=== PATIENT | male | born 1945 | race Caucasian/White ===

== ENCOUNTER 2021-06-09 01:15 | Day surgery (SDC) | payer MEDICARE, SELFPAY ==
[2021-05-26 13:51] VITALS: BMI 25.1
[2021-06-09 08:08] VITALS: BP 132/55; PULSE 62; RESP 16; TEMP 36.2; O2SAT 100
[2021-06-09] MEDS: LACTATED RINGERS 1,000 ML 150 ML IV CONT (08:18)
--- NOTE | 2021-06-09 08:20 | WPDGICN ---
Assessment and Plan Assessment and plan (1) History of colon polyps: Code(s): Z86.010 - Personal history of colonic polyps Status: Acute Assessment and Plan: Patient has prior history of colon polyp in 2016. Plan is for surveillance colonoscopy at this time. Further recommendations will be given after endoscopy. GI Consult Note Consult date/time: 06/09/21 08:20 HPI: Vinod Lewis is a 76 year old male Presents for screening colonoscopy. Patient reports his current weight appetite bowel movements are normal. Patient denies abdominal pain. He has had no bleeding. Family history is noncontributory. Patient's most recent colonoscopy 2016 revealed benign adenoma. He presents today for follow-up screening colonoscopy. Review of Systems Review of Systems: All systems reviewed & are unremarkable except as noted in HPI and below PMFSH Past Medical History Medical History Chronic low back pain Dyslipidemia 04/13/2017 History of prostate cancer Tinnitus, right ear Surgical History Surgical History Hx of tonsillectomy 6th grade [place] teeth extracted Family History Family History Mother Diabetes mellitus, Onset Age: 59 Sibling Malignant neoplasm of prostate Social History Social History Smoking status: Never smoker Second hand tobacco smoke exposure: Yes Additional smoking assessment comments: does smoke around him Alcohol intake: never Substance use: never Substance use type: does not use Living arrangements: with family Gender identity (if verbalized by the patient): Male Spiritual care concerns: No Meds Home Medications and Allergies Home Medications Medication Instructions Recorded Confirmed Type atorvastatin 20 mg tablet 20 mg PO QHS #90 tablet 04/29/21 05/26/21 Rx Allergies Allergy/AdvReac Type Severity Reaction Status Date / Time No Known Allergies Allergy Mild Verified 06/09/21 08:06 Vital Signs Vital Signs - 24 hr 06/09/21 08:08 Temperature 97.1 F L Pulse Rate 62 Respiratory Rate 16 Blood Pressure 132/55 L Pulse Oximetry 100 Exam Narrative: Physical exam reveals patient to be alert. Vital signs stable. HEENT exam is unremarkable. Patient is anicteric. Lungs are clear to auscultation and percussion. Heart is without murmur or extra sounds. abdominal exam bowel sounds are present soft nontender with no hepatosplenomegaly. Digital external rectal exam is normal.
[2021-06-09 08:35] VITALS: BP 130/57; PULSE 58; RESP 16; O2SAT 100
--- NOTE | 2021-06-09 08:47 | WPDANESEPPF ---
Anes - Initial Pre Proc Eval Procedure: Operation Date: 06/09/21 09:30 Proposed Procedures p Screening Colonoscopy - Mateo Roberts MD Date/Time: 06/09/21 08:47 Surgeon: Mateo Roberts MD Pre Op Diagnosis: hx of colon polyps Patient Data Age: 76 Gender: M Height: 1.75 m Weight: 74.8 kg Last Vital Signs Temp 97.1 F L 06/09/21 08:08 Pulse 62 06/09/21 08:08 Resp 16 06/09/21 08:08 BP 132/55 L 06/09/21 08:08 Pulse Ox 100 06/09/21 08:08 Allergies Allergy/AdvReac Type Severity Reaction Status Date / Time No Known Allergies Allergy Mild Verified 06/09/21 08:06 Home Medications Medication Instructions Recorded Confirmed Type atorvastatin 20 mg tablet 20 mg PO QHS #90 tablet 04/29/21 05/26/21 Rx Patient hx anesthesia problems: none Family hx anesthesia problems: none Results Review: All pre-operative results and documents have been reviewed as part of the pre-operative evaluation. [facility] Past Medical History Medical History Chronic low back pain Dyslipidemia 04/13/2017 History of prostate cancer Tinnitus, right ear Surgical History Surgical History Hx of tonsillectomy 6th grade [place] teeth extracted Family History Family History Mother Diabetes mellitus, Onset Age: 59 Sibling Malignant neoplasm of prostate Social History Social History Smoking status: Never smoker Second hand tobacco smoke exposure: Yes Additional smoking assessment comments: does smoke around him Alcohol intake: never Substance use: never Substance use type: does not use Living arrangements: with family Gender identity (if verbalized by the patient): Male Spiritual care concerns: No Anes - Eval Final PreProcedure Day of Procedure 06/09/21 08:47 Patient weight: normal Heart: regular rate and rhythm Lungs: clear to auscultation Airway: Mallampati scale class II Neurological: alert and oriented Last oral intake: >/= 8 hours ASA classification: II Emergent: no Anesthetic plan: proceed Anesthesia type and monitoring: general GIVS and standard monitoring Results Review: All pre-operative results and documents have been reviewed as part of the pre-operative evaluation. Informed Consent: The patient's anesthetic plan and its attendant risks and benefits were discussed with the patient/family/POA. Questions were solicited and answers provided to the satisfaction of the patient/family/POA.
[2021-06-09 09:15] VITALS: BP 87/46; PULSE 56; RESP 15; O2SAT 99
[2021-06-09 09:25] VITALS: BP 102/53; PULSE 54; RESP 15; O2SAT 99
== END 2021-06-09 09:47 | disposition home or self-care (01) ==
PROVIDERS: PCP Family Medicine; Visit Provider Internal Medicine Gastroenterology
PROC: 0DJD8ZZ Inspection of Lower Intestinal Tract, Via Natural or Artificial Opening Endoscopic (ICD-10-PCS; CPT 45378; principal; 2021-06-09 09:30)
DX: Z12.11 Encounter for screening for malignant neoplasm of colon (principal); D12.3 Benign neoplasm of transverse colon; D12.5 Benign neoplasm of sigmoid colon; K64.8 Other hemorrhoids; E78.5 Hyperlipidemia, unspecified
CPT/HCPCS: 45385; 88305; J2704; J7120

== ENCOUNTER 2024-02-08 08:07 | Outpatient (CLI) | payer MEDICARE, OTHER, SELFPAY ==
--- NOTE | ~2024-02-08 | XR_ITS ---
EXAMINATION: XR UGIAC w barium swallow DATE: 02/08/2024 09:15 INDICATION: Several months of sensation of food getting stuck in esophagus TECHNIQUE: The patient drank thick barium, gas-producing crystals, and thin barium. A total of 1616 f luoroscopic images of the esophagus, stomach, and proximal small bowel were obtained. Fluoroscopy exp osure time was 2.1 minutes. Total DAP was 10.374 Gycm^2 COMPARISON: None. FINDINGS: The esophagus is normal without mass or stricture. Esophageal motility is normal. There is no hiatal hernia. There was no gastroesophageal reflux with provocative maneuvers. There is an 8 mm p olypoid filling defect at the posterior fundus of the stomach. The visualized proximal small bowel is normal. IMPRESSION: 1. 8 mm polypoid filling defect at the posterior fundus of the stomach and would recommend endoscopy for further evaluation. Otherwise unremarkable upper GI and barium swallow study. Reviewed, dictated and finalized at location A. IMPRESSION: 1. 8 mm polypoid filling defect at the posterior fundus of the stomach and woul d recommend endoscopy for further evaluation. Otherwise unremarkable upper GI a nd barium swallow study.
== END 2024-02-08 08:08 | disposition home or self-care (01) ==
PROVIDERS: PCP Family Medicine; Visit Provider Nurse Practitioner Family
DX: R09.A2 Foreign body sensation, throat (principal)
CPT/HCPCS: 74246

== ENCOUNTER 2024-04-11 01:24 | Day surgery (SDC) | payer MEDICARE, OTHER, SELFPAY ==
[2024-03-27 15:07] VITALS: BMI 24.4
[2024-04-11 12:33] VITALS: BP 166/65; PULSE 71; RESP 18; TEMP 36.4; O2SAT 99; BMI 24.6
--- NOTE | 2024-04-11 12:55 | WPDANESEPPF ---
Anes - Initial Pre Proc Eval Procedure: Operation Date: 04/11/24 14:00 Proposed Procedures p Esophagogastroduodenoscopy - Albino Freeman MD Date/Time: 04/11/24 12:55 Surgeon: Albino Freeman MD Pre Op Diagnosis: Foreign body sensation throat, abnormal findings Patient Data Age: 78 Gender: M Height: 1.75 m Weight: 75.8 kg Last Vital Signs Temp 36.4 C 04/11/24 12:33 Pulse 71 04/11/24 12:33 Resp 18 04/11/24 12:33 BP 166/65 H 04/11/24 12:33 Pulse Ox 99 04/11/24 12:33 O2 Del Method Room Air 04/11/24 12:33 Allergies Allergy/AdvReac Type Severity Reaction Status Date / Time No Known Allergies Allergy Mild Verified 04/11/24 12:44 Home Medications Medication Instructions Recorded Confirmed Type cyanocobalamin (vitamin B-12) 1,000 mcg sublingual DAILY #90 tabs 06/14/23 04/11/24 Rx 1,000 mcg sublingual tablet atorvastatin 20 mg tablet 20 mg PO QHS #90 tabs 11/30/23 04/11/24 Rx lisinopril 20 mg tablet 20 mg PO DAILY #90 tabs 11/30/23 04/11/24 Rx Vitamin D3 1 tab-cap PO DAILY 03/27/24 04/11/24 History Patient hx anesthesia problems: none Family hx anesthesia problems: none Results Review: All pre-operative results and documents have been reviewed as part of the pre-operative evaluation. [facility] Past Medical History Medical History Chronic low back pain CKD (chronic kidney disease) stage 3, GFR 30-59 ml/min Dyslipidemia 04/13/2017 Essential (primary) hypertension Globus sensation History of colon polyps History of prostate cancer Tinnitus, right ear Surgical History Surgical History Hx of tonsillectomy 6th grade [place] teeth extracted Family History Family History Mother Diabetes mellitus, Onset Age: 59 Sibling Malignant neoplasm of prostate Social History Social History Social History: Vinod is . 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 Smoking status: Never smoker Second hand tobacco smoke exposure: Yes Additional smoking assessment comments: does smoke around him Alcohol intake: current Substance use: never Substance use type: does not use Lack of Transportation: No Lack of Food: Never True Current Housing: I Have Housing Concerned About Future Housing: No Difficulty Paying Gas/Electric Bills: No Difficulty Paying for Meds: No Currently Unemployed: No Education: Master's Degree or Higher Difficulty w/ Childcare or Family Care: No Living arrangements: with family Additional living arrangements comments: Occupation/Education: retired Gender identity (if verbalized by the patient): Male Sexual Orientation (if Verbalized by the Patient): Straight or Heterosexual Spiritual care concerns: No Agree to blood products: Yes Anes - Eval Final PreProcedure Day of Procedure 04/11/24 12:55 Patient weight: normal Heart: regular rate and rhythm Lungs: clear to auscultation Airway: Mallampati scale class II Neurological: alert and oriented Last oral intake: >/= 8 hours ASA classification: III Emergent: no Anesthetic plan: proceed Anesthesia type and monitoring: general GIVS and standard monitoring Results Review: All pre-operative results and documents have been reviewed as part of the pre-operative evaluation. Informed Consent: The patient's anesthetic plan and its attendant risks and benefits were discussed with the patient/family/POA. Questions were solicited and answers provided to the satisfaction of the patient/family/POA.
[2024-04-11] MEDS: LACTATED RINGERS 1,000 ML 150 ML IV CONT (13:00)
--- NOTE | 2024-04-11 13:28 | PM.HPGS ---
History of Present Illness History of Present Illness Consent: Risks, benefits, and alternatives have been discussed and questions answered. Patient agrees to proceed with procedure. Chief complaint: Foreign body sensation throat, abnormal findings Narrative: Vinod Lewis is a 78 year old male here for egd because sensation of food getting stuck in esophagus, then had UGI- 8 mm polypoid filling defect at the posterior fundus of the stomach and would recommend endoscopy for further evaluation. Otherwise unremarkable upper GI and barium swallow study. Review of Systems Review of Systems: All systems reviewed & are unremarkable except as noted in HPI and below PMFSH Past Medical History Medical History (Updated 04/11/24 @ 13:28 by Albino Freeman MD) Abnormal UGI series Chronic low back pain CKD (chronic kidney disease) stage 3, GFR 30-59 ml/min Dyslipidemia 04/13/2017 Essential (primary) hypertension Globus sensation History of colon polyps History of prostate cancer Tinnitus, right ear Surgical History Surgical History Hx of tonsillectomy 6th grade [place] teeth extracted Family History Family History Mother Diabetes mellitus, Onset Age: 59 Sibling Malignant neoplasm of prostate Social History Social History Social History: Vinod is . 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 Smoking status: Never smoker Second hand tobacco smoke exposure: Yes Additional smoking assessment comments: does smoke around him Alcohol intake: current Substance use: never Substance use type: does not use Lack of Transportation: No Lack of Food: Never True Current Housing: I Have Housing Concerned About Future Housing: No Difficulty Paying Gas/Electric Bills: No Difficulty Paying for Meds: No Currently Unemployed: No Education: Master's Degree or Higher Difficulty w/ Childcare or Family Care: No Living arrangements: with family Additional living arrangements comments: Occupation/Education: retired Gender identity (if verbalized by the patient): Male Sexual Orientation (if Verbalized by the Patient): Straight or Heterosexual Spiritual care concerns: No Agree to blood products: Yes Meds Home Medications and Allergies Home Medications Medication Instructions Recorded Confirmed Type cyanocobalamin (vitamin B-12) 1,000 mcg sublingual DAILY #90 tabs 06/14/23 04/11/24 Rx 1,000 mcg sublingual tablet atorvastatin 20 mg tablet 20 mg PO QHS #90 tabs 11/30/23 04/11/24 Rx lisinopril 20 mg tablet 20 mg PO DAILY #90 tabs 11/30/23 04/11/24 Rx Vitamin D3 1 tab-cap PO DAILY 03/27/24 04/11/24 History Allergies Allergy/AdvReac Type Severity Reaction Status Date / Time No Known Allergies Allergy Mild Verified 04/11/24 12:44 Vital Signs Vital Signs - 24 hr 04/11/24 12:33 Temperature 97.6 F Pulse Rate 71 Respiratory Rate 18 Blood Pressure 166/65 H Pulse Oximetry 99 Oxygen Delivery Room Air Exam Const: General: comfortable and no acute distress HENMT: Face/Nose/Sinus: Normal nares present Eyes: General: appearance normal, both eyes and all related structures Neck: Neck: no JVD Resp: Auscultation: clear to auscultation bilaterally Cardio: Rate: regular rate Rhythm: regular rhythm GI: Inspection: non-distended GI Palp: Yes Soft to palpation Skin: General skin exam: normal color Neuro: General: gait normal Speech: normal speech Extrem: General: normal to inspection Psych: Mental Status: mental status grossly normal Assessment and Plan Assessment and plan (1) Abnormal UGI series: Code(s): R93.3 - Abnormal findings on diagnostic imaging of other parts of dig
[2024-04-11 13:39] VITALS: BP 158/70; PULSE 71; RESP 18; O2SAT 100
[2024-04-11 13:49] VITALS: BP 148/68; PULSE 65; RESP 18; O2SAT 99
[2024-04-11 13:55] VITALS: BP 157/75; PULSE 63; RESP 18; O2SAT 99
== END 2024-04-11 14:09 | disposition home or self-care (01) ==
PROVIDERS: PCP Family Medicine; Referring Provider Nurse Practitioner Family; Visit Provider Internal Medicine Gastroenterology
PROC: 0DJ08ZZ Inspection of Upper Intestinal Tract, Via Natural or Artificial Opening Endoscopic (ICD-10-PCS; CPT 43235; principal; 2024-04-11 14:00)
DX: K31.7 Polyp of stomach and duodenum (principal); I12.9 Hypertensive chronic kidney disease with stage 1 through stage 4 chronic kidney disease, or unspecified chronic kidney disease; N18.30 Chronic kidney disease, stage 3 unspecified; E78.5 Hyperlipidemia, unspecified; Z85.46 Personal history of malignant neoplasm of prostate
CPT/HCPCS: 43239; 88305; J2704; J7120

== ENCOUNTER 2024-06-22 01:20 | Day surgery (SDC) | payer MEDICARE, OTHER, SELFPAY ==
[2024-06-06 13:10] VITALS: BMI 24.4
[2024-06-22 11:40] VITALS: BP 141/59; PULSE 70; RESP 18; TEMP 36.8; O2SAT 100
[2024-06-22] MEDS: LACTATED RINGERS 1,000 ML 150 ML IV CONT (11:44)
--- NOTE | 2024-06-22 11:50 | P.PNAN_ITS ---
Anes - Initial Pre Proc Eval Procedure: Operation Date: 06/22/24 13:00 Proposed Procedures p Colonoscopy - Lior Hagan MD Date/Time: 06/22/24 11:50 Surgeon: Lior Hagan MD Pre Op Diagnosis: hx of colon polyps Patient Data Age: 79 Gender: M Height: 1.75 m Weight: 72.6 kg Last Vital Signs Temp 98.2 F 06/22/24 11:40 Pulse 70 06/22/24 11:40 Resp 18 06/22/24 11:40 BP 141/59 H 06/22/24 11:40 Pulse Ox 100 06/22/24 11:40 O2 Del Method Room Air 06/22/24 11:40 Allergies Allergy/AdvReac Type Severity Reaction Status Date / Time No Known Allergies Allergy Mild Verified 06/22/24 11:39 Home Medications Medication Instructions Recorded Confirmed Type cyanocobalamin (vitamin B-12) 1,000 mcg sublingual DAILY #90 tabs 06/14/23 06/22/24 Rx 1,000 mcg sublingual tablet lisinopril 20 mg tablet 20 mg PO DAILY #90 tabs 11/30/23 06/22/24 Rx Vitamin D3 1 tab-cap PO DAILY 03/27/24 06/22/24 History atorvastatin 20 mg tablet 20 mg PO QHS #90 tabs 06/11/24 06/22/24 Rx Patient hx anesthesia problems: none Family hx anesthesia problems: none Results Review: All pre-operative results and documents have been reviewed as part of the pre- operative evaluation. [facility] Past Medical History Medical History Chronic low back pain CKD (chronic kidney disease) stage 3, GFR 30-59 ml/min Dyslipidemia 04/13/2017 Essential (primary) hypertension History of colon polyps History of prostate cancer Prediabetes Tinnitus, right ear Surgical History Surgical History Hx of tonsillectomy 6th grade [place] teeth extracted Family History Family History Mother Diabetes mellitus, Onset Age: 59 Sibling Malignant neoplasm of prostate Social History Social History (Reviewed 06/22/24 @ 11:50 by KAIA Becerra Social History: Vinod is . 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 Smoking status: Never smoker Second hand tobacco smoke exposure: Yes Additional smoking assessment comments: does smoke around him Alcohol intake: current Substance use: never Substance use type: does not use Lack of Transportation: No Lack of Food: Never True Current Housing: I Have Housing Concerned About Future Housing: No Difficulty Paying Gas/Electric Bills: No Difficulty Paying for Meds: No Currently Unemployed: No Education: Master's Degree or Higher Difficulty w/ Childcare or Family Care: No Living arrangements: with family Additional living arrangements comments: Occupation/Education: retired Gender identity (if verbalized by the patient): Male Sexual Orientation (if Verbalized by the Patient): Straight or Heterosexual Spiritual care concerns: No Agree to blood products: Yes Anes - Eval Final PreProcedure Day of Procedure 06/22/24 11:50 Patient weight: normal Heart: regular rate and rhythm Lungs: clear to auscultation Airway: Mallampati scale class II Neurological: alert and oriented Last oral intake: >/= 8 hours ASA classification: III Emergent: no Anesthetic plan: proceed Anesthesia type and monitoring: general GIVS and standard monitoring Results Review: All pre-operative results and documents have been reviewed as part of the pre- operative evaluation. HTN, hyperlipidemia, CKD stage 3. Active w walking 1-2 fos, no cp or sob. Informed Consent: The patient's anesthetic plan and its attendant risks and benefits were discuss ed with the patient/family/POA. Questions were solicited and answers provided to the satisfaction of the patient/family/POA.
--- NOTE | 2024-06-22 12:01 | P.HP_ITS ---
H&P: HPI History of Present Illness Date/Time: 06/22/24 12:01 Chief Complaint: History of colon polyps Narrative: The patient has a history of colonic polyps, the last colonoscopy was 3 y ago Review of Systems Review of Systems: All systems reviewed & are unremarkable except as noted in HPI and below PMFSH Past Medical History Medical History Chronic low back pain CKD (chronic kidney disease) stage 3, GFR 30-59 ml/min Dyslipidemia 04/13/2017 Essential (primary) hypertension History of colon polyps History of prostate cancer Prediabetes Tinnitus, right ear Surgical History Surgical History Hx of tonsillectomy 6th grade [place] teeth extracted Family History Family History Mother Diabetes mellitus, Onset Age: 59 Sibling Malignant neoplasm of prostate Social History Social History Social History: Vinod is . 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 Smoking status: Never smoker Second hand tobacco smoke exposure: Yes Additional smoking assessment comments: does smoke around him Alcohol intake: current Substance use: never Substance use type: does not use Lack of Transportation: No Lack of Food: Never True Current Housing: I Have Housing Concerned About Future Housing: No Difficulty Paying Gas/Electric Bills: No Difficulty Paying for Meds: No Currently Unemployed: No Education: Master's Degree or Higher Difficulty w/ Childcare or Family Care: No Living arrangements: with family Additional living arrangements comments: Occupation/Education: retired Gender identity (if verbalized by the patient): Male Sexual Orientation (if Verbalized by the Patient): Straight or Heterosexual Spiritual care concerns: No Agree to blood products: Yes Meds Home Medications and Allergies Home Medications Medication Instructions Recorded Confirmed Type cyanocobalamin (vitamin B-12) 1,000 mcg sublingual DAILY #90 tabs 06/14/23 06/22/24 Rx 1,000 mcg sublingual tablet lisinopril 20 mg tablet 20 mg PO DAILY #90 tabs 11/30/23 06/22/24 Rx Vitamin D3 1 tab-cap PO DAILY 03/27/24 06/22/24 History atorvastatin 20 mg tablet 20 mg PO QHS #90 tabs 06/11/24 06/22/24 Rx Allergies Allergy/AdvReac Type Severity Reaction Status Date / Time No Known Allergies Allergy Mild Verified 06/22/24 11:39 Vital Signs Vital Signs - 24 hr 06/22/24 11:40 Temperature 98.2 F Pulse Rate 70 Respiratory Rate 18 Blood Pressure 141/59 H Pulse Oximetry 100 Oxygen Delivery Room Air Assessment and Plan Assessment and plan (1) Prediabetes: Code(s): R73.03 - Prediabetes Status: Acute Plan The patient is deemed a good candidate for the procedure. Consent signed. Will proceed.
--- NOTE | 2024-06-22 12:35 | SUR.OPER ---
5 resolution clips deployed, 2/5 attached to polyp site
[2024-06-22 12:45] VITALS: BP 107/51; PULSE 58; RESP 16; O2SAT 100
[2024-06-22 12:55] VITALS: BP 121/73; PULSE 65; RESP 22; O2SAT 94
[2024-06-22 13:05] VITALS: BP 135/66; PULSE 56; RESP 16; O2SAT 98
== END 2024-06-22 13:18 | disposition home or self-care (01) ==
PROVIDERS: PCP Family Medicine; Visit Provider Internal Medicine Gastroenterology
PROC: 0DJD8ZZ Inspection of Lower Intestinal Tract, Via Natural or Artificial Opening Endoscopic (ICD-10-PCS; CPT 45378; principal; 2024-06-22 13:00)
DX: Z12.11 Encounter for screening for malignant neoplasm of colon (principal); D12.2 Benign neoplasm of ascending colon; K63.5 Polyp of colon; K64.1 Second degree hemorrhoids; I12.9 Hypertensive chronic kidney disease with stage 1 through stage 4 chronic kidney disease, or unspecified chronic kidney disease; N18.30 Chronic kidney disease, stage 3 unspecified; E78.5 Hyperlipidemia, unspecified; R73.03 Prediabetes; G89.29 Other chronic pain; M54.50 Low back pain, unspecified; Z98.890 Other specified postprocedural states; Z85.46 Personal history of malignant neoplasm of prostate; Z80.42 Family history of malignant neoplasm of prostate
CPT/HCPCS: 45390; 88305; J2003; J2704; J7120

== ENCOUNTER 2025-06-12 00:39 | Day surgery (SDC) | payer MEDICARE, OTHER, SELFPAY ==
[2025-06-03 13:31] VITALS: BMI 54.6
--- OUTSIDE RECORDS SUMMARY | 2025-06-12 00:43 | XMS_ITS | Clinical Summary ---
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 Gender Identity Not on file Sexual Orientation Not on file Plan of Treatment Health Maintenance Due Date Last Done Comments Hepatitis C Virus (HCV) Screening 1945 TdaP Immunization 1945 Pneumococcal Immunization (5 0+ years) (1 of 1 - PCV) 1996 Zoster Immunization (1 of 2) 1996 Respiratory Syncytial Virus (RSV) Immunization (Adult) (1 - 1-dose 75+ series) 2021 Influenza Immunization (#1) 2025 SARS-COV-2 Immunization ( - season) 2025 Hepatitis B Immunization Aged Out No longer eligible based on patient's age to complete this topic Human Papillomavirus (HPV) Immunization Aged Out No longer eligible b ased on patient's age to complete this topic Meningococcal Immunization (ACWY) Aged Out No longer eligible based on patient's age to complete this topic Rotavirus Immunization Aged Out No lo nger eligible based on patient's age to complete this topic
[2025-06-12 08:24] VITALS: BP 135/55; PULSE 70; RESP 18; TEMP 36.2; O2SAT 100
[2025-06-12] MEDS: LACTATED RINGERS 1,000 ML 150 ML IV CONT (08:43)
--- NOTE | 2025-06-12 09:13 | P.PNAN_ITS ---
Anes - Initial Pre Proc Eval Procedure: Operation Date: 06/12/25 09:30 Proposed Procedures p Screening Colonoscopy - Lior Hagan MD Date/Time: 06/12/25 09:13 Surgeon: Lior Hagan MD Pre Op Diagnosis: Personal history of colon polyps, unspecified Patient Data Age: 80 Gender: M Height: 1.73 m Weight: 74.1 kg Last Vital Signs Temp 36.2 C L 06/12/25 08:24 Pulse 70 06/12/25 08:24 Resp 18 06/12/25 08:24 BP 135/55 L 06/12/25 08:24 Pulse Ox 100 06/12/25 08:24 O2 Del Method Room Air 06/12/25 08:24 Allergies Allergy/AdvReac Type Severity Reaction Status Date / Time No Known Allergies Allergy Mild Verified 06/12/25 08:22 Home Medications ?Medication ?Instructions ?Recorded ?Confirmed ?Type cyanocobalamin (vitamin B-12) 1,000 mcg sublingual CASSIDY LY #90 tabs 06/14/23 06/12/25 Rx 1,000 mcg sublingual tablet atorvastatin 20 mg tablet 20 mg PO QHS #90 tabs 06/12/25 Rx lisinopril 20 mg tablet 20 mg PO DAILY #90 tabs 04/3006/12/25 Rx Patient hx anesthesia problems: none Family hx anesthesia problems: none Results Review: All pre-operative results and documents have been reviewed as part of the pre- operative evaluation. [facility] Past Medical History Medical History Prediabetes Essential (primary) hypertension CKD (chronic kidney disease) stage 3, GFR 30-59 ml/min History of colon polyps Chronic low back pain Tinnitus, right ear Dyslipidemia 04/13/2017 History of prostate cancer Surgical History Surgical History [place] teeth extracted Hx of tonsillectomy (~1953) 6th grade Family History Family History Mother Diabetes mellitus, Onset Age: 59 Sibling Malignant neoplasm of prostate Social History Social History Social History: Vinod is . 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 Smoking status: Never smoker Second hand tobacco smoke exposure: Yes Additional smoking assessment comments: does smoke around him Alcohol intake: current Substance use: never Substance use type: does not use Lack of Transportation: No Lack of Food: Never True Current Housing: I Have Housing Concerned About Future Housing: No Difficulty Paying Gas/Electric Bills: No Difficulty Paying for Meds: No Currently Unemployed: No Education: Master's Degree or Higher Difficulty w/ Childcare or Family Care: No Living arrangements: with family Additional living arrangements comments: Occupation/Education: retired Gender identity (if verbalized by the patient): Male Sexual Orientation (if Verbalized by the Patient): Straight or Heterosexual Spiritual care concerns: No Agree to blood products: Yes Anes - Eval Final PreProcedure Day of Procedure 06/12/25 09:13 Patient weight: normal Heart: regular rate and rhythm Lungs: clear to auscultation Airway: Mallampati scale class II Neurological: alert and oriented Last oral intake: >/= 8 hours ASA classification: III Emergent: no Anesthetic plan: proceed Anesthesia type and monitoring: general GIVS and standard monitoring Results Review: All pre-operative results and documents have been reviewed as part of the pre- operative evaluation. Informed Consent: The patient's anesthetic plan and its attendant risks and benefits were discussed with the patient/family/POA. Questions were solicited and answers provided to the satisfaction of the patient/family/POA.
--- NOTE | 2025-06-12 09:49 | PM.IMHP ---
H&P: HPI History of Present Illness Date/Time: 06/12/25 09:49 Chief Complaint: History of colon polyps Narrative: The patient has a history of colonic polyps, the last colonoscopy was 1 year ago, when a large ascending colon polyp was removed. He is here for his follow-up colonoscopy. Review of Systems Review of Systems: All systems reviewed & are unremarkable except as noted in HPI and below PMFSH Past Medical History Medical History Prediabetes Essential (primary) hypertension CKD (chronic kidney disease) stage 3, GFR 30-59 ml/min History of colon polyps Chronic low back pain Tinnitus, right ear Dyslipidemia 04/13/2017 History of prostate cancer Surgical History Surgical History [place] teeth extracted Hx of tonsillectomy (~1952) 6th grade Family History Family History Mother Diabetes mellitus, Onset Age: 59 Sibling Malignant neoplasm of prostate Social History Social History Social History: Vinod is . 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 Smoking status: Never smoker Second hand tobacco smoke exposure: Yes Additional smoking assessment comments: does smoke around him Alcohol intake: current Substance use: never Substance use type: does not use Lack of Transportation: No Lack of Food: Never True Current Housing: I Have Housing Concerned About Future Housing: No Difficulty Paying Gas/Electric Bills: No Difficulty Paying for Meds: No Currently Unemployed: No Education: Master's Degree or Higher Difficulty w/ Childcare or Family Care: No Living arrangements: with family Additional living arrangements comments: Occupation/Education: retired Gender identity (if verbalized by the patient): Male Sexual Orientation (if Verbalized by the Patient): Straight or Heterosexual Spiritual care concerns: No Agree to blood products: Yes Meds Home Medications and Allergies Home Medications ?Medication ?Instructions ?Recorded ?Confirmed ?Type cyanocobalamin (vitamin B-12) 1,000 mcg sublingual DAILY #90 tabs 06/14/23 06/12/25 Rx 1,000 mcg sublingual tablet atorvastatin 20 mg tablet 20 mg PO QHS #90 tabs 05/20/25 06/12/25 Rx lisinopril 20 mg tablet 20 mg PO DAILY #90 tabs 05/20/25 06/12/25 Rx Allergies Allergy/AdvReac Type Severity Reaction Status Date / Time No Known Allergies Allergy Mild Verified 06/12/25 08:22 Vital Signs Vital Signs - 24 hr 06/12/25 08:24 Temperature 97.2 F L Pulse Rate 70 Respiratory Rate 18 Blood Pressure 135/55 L Pulse Oximetry 100 Oxygen Delivery Room Air Exam Const: General: cooperative and healthy appearing Resp: Effort & Inspection: normal respiratory effort and able to speak in complete sentences Auscultation: clear to auscultation bilaterally Cardio: Rate: regular rate Rhythm: regular rhythm GI: Inspection: normal to inspection GI Palp: No No hepatosplenomegaly present Auscultation: normal bowel sounds Rectal Exam: deferred Skin: General skin exam: normal color Psych: Appearance: grossly normal Mental Status: mental status grossly normal Assessment and Plan Assessment and plan (1) History of colonic polyps: Code(s): Z86.0100 - Personal history of colon polyps, unspecified Status: Acute Assessment and Plan: The patient is deemed a good candidate for the procedure. Consent signed. Will proceed.
[2025-06-12] MEDS: SIMETHICONE ORAL SUSPENSION 20 MG/0.3 ML 30 ML BOTTLE 0.6 ML IRRIGATION (10:01)
--- NOTE | 2025-06-12 10:12 | S_PTH ---
PATIENT: Vinod Lewis LOC: [facility] #:[id number] AGE/SX: 80/M ROOM: RE06/12/[address]: Lior Hagan MD : 1945 BED: DIS: 06/12/2025 SPEC #: [id number] RECD: 06/12/25 11:03 STATUS: STACI REQ #: [id number] CADEN: 06/12/25 10:[address]: Lior Hagan DEPT: [facility] Surgical RECD BY: Vy Knight ENTERED: 06/12/25 11:04 SP TYPE: Surgical OTHR DR: Jayshree Mohan MD Tissues: A - Colon Biopsy B - Colon Polypectomy Procedures: Hematoxylin and Eosin Stain Gross and Microscopic Level 4
[2025-06-12 10:13] VITALS: BP 104/50; PULSE 57; RESP 16; O2SAT 99
[2025-06-12 10:23] VITALS: BP 109/40; PULSE 55; RESP 13; O2SAT 99
[2025-06-12 10:33] VITALS: BP 104/50; PULSE 58; RESP 22; O2SAT 100
== END 2025-06-12 10:39 | disposition home or self-care (01) ==
PROVIDERS: PCP Family Medicine; Referring Provider Internal Medicine Gastroenterology; Visit Provider Internal Medicine Gastroenterology
PROC: 0DJD8ZZ Inspection of Lower Intestinal Tract, Via Natural or Artificial Opening Endoscopic (ICD-10-PCS; CPT 45378; principal; 2025-06-12 09:30)
DX: Z09 Encounter for follow-up examination after completed treatment for conditions other than malignant neoplasm (principal); D12.8 Benign neoplasm of rectum; K64.8 Other hemorrhoids; K63.89 Other specified diseases of intestine; E78.5 Hyperlipidemia, unspecified; E13.22 Other specified diabetes mellitus with diabetic chronic kidney disease; I12.9 Hypertensive chronic kidney disease with stage 1 through stage 4 chronic kidney disease, or unspecified chronic kidney disease; N18.30 Chronic kidney disease, stage 3 unspecified; G89.29 Other chronic pain; M54.50 Low back pain, unspecified; Z98.890 Other specified postprocedural states; Z85.46 Personal history of malignant neoplasm of prostate; Z80.42 Family history of malignant neoplasm of prostate
CPT/HCPCS: 45380; 45385; 88305; J2003; J2704; J7120